=== PATIENT | male | born 1965 | race Caucasian/White ===

== ENCOUNTER 2017-04-18 22:58 | Emergency (ER) | payer OTHER ==
[2017-04-18] MEDS ORDERED: NORMAL SALINE 10 ML SYRINGE FLUSH IVP PRN (23:13)
--- NOTE | 2017-04-19 00:18 | DI ---
HISTORY: Chest pain with elevated d-dimer and shortness of breath. COMPARISON: Chest radiograph dated 04/18/2017. TECHNIQUE: CT Angiogram of the chest images were obtained and submitted for interpretation. FINDINGS: Patient motion creates artifact that limits evaluation of fine anatomic detail. Contrast bolus timing is inadequate for the evaluation of pulmonary emboli. No pneumothorax, pleural effusion, or area of consolidation. Airways are patent with no narrowing or endobronchial lesions. Heart size is normal with no pericardial effusion. Vascular structures are grossly intact. The iris n pulmonary artery is dilated at 3.8 cm, a finding associated with pulmonary artery hypertension. Th e thyroid gland is within normal limits. No mediastinal or hilar lymphadenopathy. Limited evaluation of the upper abdomen reveals prior cholecystectomy. Anterior wedging of T11 and T 12 may represent normal anatomic variation versus the sequela of age indeterminate trauma. There is multilevel degenerative disc disease. There is mild bilateral gynecomastia. IMPRESSION: 1. Contrast bolus timing is inadequate for the evaluation of pulmonary emboli. 2. The main pulmonary artery is dilated at 3.8 cm, a finding associated with pulmonary artery hyperte nsion. 3. No pneumothorax, pleural effusion, or area of consolidation. NOTIFICATION: The above findings were phoned to Roz Santiago in the ER Department on 04/19/2017 a t 02:21 AM EST.
[2017-04-19] MEDS ORDERED: Apixaban 5 MG TABLET PO ONE (02:13)
--- NOTE | 2017-04-19 02:22 | DI ---
HISTORY: Bilateral lower extremity pain. Elevated d-dimer. COMPARISON: None available. TECHNIQUE: Sonographic images of the bilateral lower extremities were obtained. FINDINGS: There is normal flow, compressibility and phasicity within the deep veins of the left lowe r extremity. No evidence of deep vein thrombosis in the left lower extremity. There is thrombus in the mid and distal right superficial femoral veins, consistent with deep vein th rombosis of the right lower extremity. IMPRESSION: 1. No evidence of deep vein thrombosis in the left lower extremity. 2. Right lower extremity deep vein thrombosis as above. NOTIFICATION: The above findings were phoned to Roz Lemus in the ER Department on 04/19/2017 at 04:29 AM EST. NOTE: The interpreting Radiologist was not present at the time of ultrasound interrogation.
--- NOTE | 2017-04-19 02:35 | PDOC ---
General Adult HPI - General Chief Complaint: General Medical Stated Complaint: ELEVATED D-DIMER Date Seen by Provider: 04/18/17 Time Seen by Provider: 23:10 Source: POSITIVE: Patient Exam Limitations: POSITIVE: No limitations Nurse's Notes Reviewed & Considered: Yes - History of Present Illness Initial Comment: The patient is a 51-year-old male who presents to the emergency department with an elevated d-dimer. He has a history of sleep apnea and had seen his primary care provider Dr. Jovel earlier today to discuss changing from CPAP to BiPAP. At that time he also mentioned to Dr. Jovel that he has been having some intermittent chest pains lasting up to several hours. He also has some increase shortness of breath. He had undergone an EKG at the clinic that did not show any evidence of acute ST segment or T-wave changes. He also had blood work which included a normal troponin. His d-dimer however came back elevated at 1.5. The lab tests were not available by the time the clinics had closed. He subsequently came here to the ER to be evaluated. He denies any current chest pain although he states his pain seems to come and go. It is sometimes worsened with taking a deep breath. He has chronic pain in both of his legs so it is difficult for him to tell whether he has had any new pain. He does have a history of 1 prior DVT. He is not currently on any blood thinner medications. He denies any known history of heart disease. Have you received a tetanus shot in the past 10 years?: Yes - Patient Home Medications Home Medications: Home Medications Mupirocin Calcium [Mupirocin] 15 gm TOPICAL QD #1 tube 03/08/16 Testosterone Cypionate Inj [Depo-Testosrerone Cyp Inj] 1 ml IM q2wk #2 ml Linaclotide [Linzess] 1 tab PO DAILY #30 cap 04/18/17 Oxycodone HCl 1 tab PO Q6H #120 tab 04/18/17 Pantoprazole Sodium 1 tab PO DAILY #30 tab 04/18/17 Quinapril/Hydrochlorothiazide [Accuretic 20-25 Mg Tablet] 1 tab PO BID #60 tab 04/18/17 Apixaban [Eliquis] 5 mg PO BID #60 tablet 04/19/17 - Patient Allergies Allergies/Adverse Reactions: Allergies Allergy/AdvReac Type Severity Reaction Status Date / Time atorvastatin calcium Allergy Intermediate NAUSEA/EXTREME Unverified 02/21/17 09: 28 [From Lipitor] STOMACH PAIN erythromycin lactobionate Allergy Intermediate VOMITING Unverified 02/21/17 09: 28 [From Erythrocin] gemfibrozil [Gemfibrozil] Allergy Intermediate NAUSEA/EXTREME Unverified 09:28 STOMACH PAIN PAIN CONTRACT AdvReac Unknown NOT Uncoded 09/26/16 17:02 APPLICABLE Past Medical History - heen HEENT History: Denies History Cardiovascular History: Hypertension, Hyperlipidemia Respiratory History: Denies History Additional Respiratory History: OBSTRUCTIVE SLEEP APNEA Gastrointestinal History: Gallbladder Disease Additional Gastrointestinal History: lap deysi Genitourinary History: Other (please comment) Additional Genitourinary History: BPH Endocrine History: Hypothyroidism Additional Endocrine History: HISTORY OF HYPOTHYROIDISM, DOESN'T REMEMBER WHEN TAKEN OFF MEDICATION Musculoskeletal History: Arthritis, Muscle Weakness, Other (please comment) Prosthesis or Implant: No Additional Musculoskeletal History: RIGHT LEG WEAKNESS. NECK PAIN Neurological History: Denies History Blood Disorders: Denies History Psychiatric History: Anxiety Disorders, ADHD, PTSD History of Sexually Transmitted Diseases: No Cancer History: Denies History History of MDRO: No History of Other Communicable Diseases: No Alcohol Use: Occasionally Substance Use Type: None Previous Surgical History: Yes Type / Date of Surgery: LAMINECTOMY C1-C7. CHOLECYSTECOMY. LEFT FOOT SURGERY. RIGHT KNEE SURGERY X 15. LEFT KNEE SURGERY Anesthesia Reactions: No Significant Family History: No pertinent family hx Past Medical History Reviewed: Reviewed - No Changes ROS - Limitations ROS Limitations: No Limitations Constitution: DENIES: Chills, Fever Cardiovascular: REPORTS: Chest Pain, Edema (Always has some degree of swelling in both of his legs). DENIES: Heart Racing, Heart Palpitations Respiratory: REPORTS: Hurts To Breathe, Shortness Of Breath Neurological: REPORTS: Denies Neuro Symptoms Gastrointestinal: REPORTS: Denies GI Symptoms Endocrine: REPORTS: Denies Symptoms Eyes: REPORTS: Denies Symptoms ENT: REPORTS: Denies Symptoms Skin: DENIES: Rash General Adult Exam - General Appearance General Appearance: POSITIVE: Alert, Cooperative, No Acute Distress - HEENT HEENT: POSITIVE: Head Inspection Nml, Eyes Inspection Nml, Ears Inspection Nml, Pharynx Inspect. Nml - Neck Neck: POSITIVE: Normal Inspection. NEGATIVE: Lymphadenopathy - Respiratory Respiratory: POSITIVE: No Respiratory Distress, Breath Sounds Normal - Cardiovascular Cardiovascular: POSITIVE: Regular Rate & Rhythm, No Murmur - Abdomen Abdomen: Soft: (All Quadrants), Denies Tenderness: (All Quadrants) - Skin Skin: POSITIVE: Normal Color, No Rash - Extremities Additional Extremities Details: Lower extremities reveal 1+ edema bilaterally, scars from previous surgeries. - Neurological / Psychological Neurological: POSITIVE: Oriented X3, Motor Normal General Adult Progress - Results Reviewed by me Xrays/CTs/US Reviewed by me: Yes Discussed with Radiologist: Yes Radiology Findings: CT PE protocol unfortunately was inadequate to evaluate for pulmonary embolism secondary to timing of the contrast bolus. No acute findings otherwise. Venous Doppler of the lower extremities reveals evidence of a DVT in the mid thigh of the right leg. Lab Results Reviewed: Yes (labs from earlier were reviewed as well as a normal troponin from this even) Lab Results:: Laboratory Results 04/18/17 Range/Units 23:25 Troponin I < 0.012 (< 0.040) ng/mL EKG Interpretation:: POSITIVE: Other (EKG from earlier today was reviewed, no evidence of acute ST segment or T-wave changes) - Patient's Progress MDM / ED Course: The patient presented to the emergency department primarily because of the elevated d-dimer that is been done in the clinic earlier today. This is been done secondary to a history of recent intermittent chest pain and shortness of breath. The CTA was inconclusive secondary to poor timing of the contrast bolus. At that point and decided to go ahead and evaluate for DVT with ultrasound. This was positive for DVT in the right thigh. It is possible that he may have a small pulmonary embolus as well causing some of his chest pain and shortness of breath. His oxygen levels are good and her vital signs are stable otherwise. I did discuss treatment options with the patient including been admitted to the hospital and being treated as an outpatient. He prefers not to be admitted. He is considered stable for treatment as an outpatient and he is agreeable to this plan. I also did discuss treatment options in regard to anticoagulants and discussed pros and cons of using traditional Coumadin versus new or anticoagulants. He elected to try one of the newer anticoagulants. He was started on elk was 10 mg and was given his first dose here in the emergency room. He will continue 10 mg twice a day for one week and then cut back to 5 mg twice a day. He is advised to return to the emergency room if he develops increased pain or shortness of breath, any worsening or change in symptoms. He will follow-up with his primary care tomorrow, he was advised to call Dr. Jovel's office tomorrow to schedule an appointment. - Consult Counseled: POSITIVE: Patient, Family, RE: Lab Results, RE: Radiology Results, RE : DX, RE: Need for F/U Patient Care Time - Estimated PCT Patient Care Time (In Minutes): 35 Vital Signs - VS Reviewed Vital Signs Reviewed: Yes Discharge Clinical Impression: DVT (deep venous thrombosis), Chest pain, written nursing documentation reviewed Condition: Stable Prescriptions / Orders: Apixaban [Eliquis] 5 mg PO BID #60 tablet Additional Instructions: The ultrasound of your legs does show a clot in the thigh of your right leg. Unfortunately the CAT scan of your lungs was inconclusive as to whether or not there was a clot there because of the timing of the contrast. Your oxygen levels are normal and the EKG done earlier today as well as the blood testing does not reveal any evidence of heart attack. He will be started on a blood thinner for treatment of the blood clot in your leg which would also treat any small blood clot in the lung. You have been started on an eliquis which she will need to take 10 mg twice a day for one week and then 5 mg twice a day after that. Return to the emergency room if increased pain or shortness of breath, any worsening or change in symptoms. Follow-up with Dr. Jovel's office tomorrow. Follow Up With: RAMÍREZ JOVEL [Primary Care Provider] -
[2017-04-19 05:18] VITALS: RESP 16; TEMP 97.8
== END 2017-04-19 02:30 | disposition home or self-care (01) ==
LOC: ER 22:58
DX: I82.411 Acute embolism and thrombosis of right femoral vein (principal); M79.605 Pain in left leg; M79.604 Pain in right leg; I27.2 Other secondary pulmonary hypertension; R07.9 Chest pain, unspecified; Z86.718 Personal history of other venous thrombosis and embolism
CPT/HCPCS: 36000; 71275; 84484; 93970; 99283

== ENCOUNTER → 2017-04-18 | Outpatient (CLI) | payer OTHER ==
--- NOTE | 2017-04-18 10:02 | EKG ---
[address] [address] Measurements Intervals [place] Rate: 57 P: 64 CA: 186 QRS: 14 QRSD: 112 T: 38 QT: 418 QTc: 412 Interpretive Statements SINUS RHYTHM POSSIBLE INFERIOR MYOCARDIAL INFARCTION [30 ms Q WAVE IN II/aVF], PROBABLY OLD Compared to ECG 11/10/2015 12:51:36 Myocardial infarct finding now present (but borderline inferior Q in aVF and variable in III) and no acute changes. Electronically Signed On 04-22-17 10:02:26 MDT by Carlos Alberto Gonsalves MD [email or web address]
== END ==
LOC: MOB LAB 09:56
PROVIDERS: ATTEND Internal Medicine
DX: R07.81 Pleurodynia (principal); R06.02 Shortness of breath
CPT/HCPCS: 36415; 80053; 84484; 85025; 85379; 93005; 93010

== ENCOUNTER → 2017-04-18 | Outpatient (CLI) | payer OTHER ==
--- NOTE | 2017-04-18 11:32 | DI ---
PA /LATERAL CHEST X-RAY, 04/18/2017 11:08 AM : Clinical History: Pleurodynia. Previous Exam: None at this facility. There is no acute soft tissue or bony abnormality. Heart size is normal. Lungs are clear. Mediastinal structures are normal. There are no pulmonary nodules. Reading: Normal chest x-ray.
[2017-04-18 12:07] LABS: BASOPHILS # (AUTO) 0.06 10*3/UL; BASOPHILS % (AUTO) 0.6 % (0-1); EOSINOPHILS # (AUTO) 0.18 10*3/UL; EOSINOPHILS % (AUTO) 1.7 % (0-8); HEMATOCRIT 46.1 % (42.0-52.0); LYMPHOCYTES # (AUTO) 2.18 10*3/uL; MEAN CORPUSCULAR HEMOGLOBIN 31.8 PG (27-31); MEAN CORPUSCULAR HGB CONC 34.7 g/dL (33-37); MEAN CORPUSCULAR VOLUME 91.7 FL (80-90); MEAN PLATELET VOLUME 11.6 FL (7.4-12.2); MONOCYTES # (AUTO) 0.98 10*3/UL (0.3-0.8); MONOCYTES % (AUTO) 9.5 % (5-15); NEUTROPHILS # (AUTO) 6.91 10*3/UL; NEUTROPHILS % (AUTO) 66.8 % (50-80); RED BLOOD COUNT 5.03 10^6/uL (4.70-6.10)
[2017-04-18 12:08] LABS: PLATELET MORPHOLOGY COMMENT NORMAL MORPHOLOGY (NORM); RBC MORPHOLOGY COMMENT NORMAL MORPHOLOGY (NORM); WBC MORPHOLOGY COMMENT NORMAL MORPHOLOGY (NORM)
[2017-04-18 12:16] LABS: BLOOD UREA NITROGEN 18 mg/dL (7-22); BUN/CREATININE RATIO 25.71 (6-20); CALCIUM 8.7 mg/dL (8.7-10.7); EST GLOMERULAR FILTRATION > 60 (>60 ml/min/1.73m(2)); SERUM ALBUMIN 3.6 g/dL (3.5-4.8)
== END ==
LOC: RAD 11:05
PROVIDERS: ATTEND Internal Medicine
DX: R07.81 Pleurodynia (principal); G47.33 Obstructive sleep apnea (adult) (pediatric); I10 Essential (primary) hypertension; E78.5 Hyperlipidemia, unspecified; R06.02 Shortness of breath
CPT/HCPCS: 36415; 71020; 80053; 84484; 85025; 85379